=== PATIENT | male | born 1960 | race Caucasian/White ===

== ENCOUNTER → 2016-11-15 | Outpatient (CLI) | payer MEDICAID ==
[~2016-11-15] MED LIST: AMITRIPTYLINE H75 MG PO; AMRIX15 MG PO; ASPIRIN 81MG TA81 MG PO; CELEXA40 MG PO; CITALOPRAM HYDR40 MG PO; DARVOCET-N 1001 EACH PO; DIABETA2.5 MG PO; FLECTOR1.3% TP; FLEXERIL10 M1 PO; FLEXERIL10 MG PO; GABAPENTIN 600600 MG PO; GLYBURIDE2.5 M1 PO; HUMALOG KW100 UNIT/1 SQ; IBU800 MG PO; LIPITOR80 MG PO; LISINOPRIL10 MG PO; LORTAB 5/500 501 TAB PO; LORTAB 500 MG-11 TAB PO; LORTAB 500 MG-71 TAB PO; MEDROL 4MG. DOSE4 MG PO; MELOXICAM7.5 MG PO; METFORMIN 500M500 M1 PO; METFORMIN500 MG PO; MOBIC15 MG PO; NEURONTIN600 MG PO; NOMEDS *; NORTRIPTYLINE75 MG PO; OMEPRAZOLE20 MG PO; OMNICEF 300 MG300 MG PO; PHENERGAN 25MG.25 M1 PO; PREDNISONE 20MG20 MG PO; PRILOSEC OTC20 MG PO; ROPINIROLE HYDRO1 MG PO; SEPTRA DS 800 M1 TAB PO; SERTRALINE 50MG50 MG PO; ULTRAM 50 MG TA50 MG PO; VENTOLIN H0.09 MG/AC IH; VICODIN 7.5/501 EACH PO; XYLOCAINE2% TP
[2016-11-15 13:36] LABS: LYMPH # 2.6 K/mm3 (0.7-4.5); LYMPH % 27.4 % (10-50)
[2016-11-15 14:50] LABS: BUN 14 mg/dL (7-18); PROSTATE-SPECIFIC AG SCREEEN 0.9 ng/mL (0.0-4.0)
[2016-11-15 14:55] LABS: GFR (ESTIMATED) 87 ML/MIN (>60)
== END ==
LOC: LAB 12:20
PROVIDERS: Nurse Practitioner Family
DX: E11.9 Type 2 diabetes mellitus without complications (principal); I10 Essential (primary) hypertension; F32.9 Major depressive disorder, single episode, unspecified; Z12.5 Encounter for screening for malignant neoplasm of prostate
CPT/HCPCS: G0103

== ENCOUNTER 2017-02-07 15:48 | Emergency (ER) | payer MEDICAID ==
[~2017-02-07] VITALS: Ht 180.3 cm; Wt 59.0 kg
--- NOTE | 2017-02-07 16:19 | Emergency Room Report ---
History of Present Illness Time Seen by [id number] Presenting Problem in Triage Pt arrived:Walked Presenting Problem:PT C/O SEEING BUGS CRAWLING ALL OVER HIS HEART AND HE ADVISES THAT THEY ARE INSIDE HIS SKIN AND CRAWL AROUND. HE HAS NOTICED THEM FOR 2 DAYS NOW. PT DENIES ANY PSYCH HX AND DENIES ANY RECENT DRUG USE. 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 N Clinical Suspician of Infection? N Mental Status: 1 - Regular (Normal Baseline) Sepsis Risk:Low Sepsis Risk Have you (or family members/close friends) recently traveled outside the [place]? N If Yes, where/when: Have you had exposure to infectious disease within the past month? N TB? Other? Specify: Patient's friend states patient "seeing bugs" for the past two days. Recent unintentional weight loss. No headache or chest pain; no fever. No urinary sx. No SOB or fevers. Not SI or HI. No other delusions reported. Patient presents lint from sock and states it's a bug. ALLERGIES Coded Allergies: Sulfa (Sulfonamide Antibiotics) (I-HIVES 01/26/16) codeine (I-HIVES 01/26/16) Home Medications Active Scripts Omeprazole (Omeprazole 20MG) 20 MG PO DAILY #30 CAP Prov: 10/11/12 Reported Medications AMITRIPTYLINE HCL (Amitriptyline HCl) 75 MG PO QHS #30 Ibuprofen (Ibu) 800 MG PO PRN PRN PAIN #90 ROPINIROLE HCL (Ropinirole 1MG) 1 MG PO QHS Metformin HCL (Metformin) 500 MG PO DAILY Insulin Lispro (Humalog Kwikpen) 8 UNIT SQ BID #3 ASPIRIN (Aspirin) 81 MG PO DAILY Gabapentin (Gabapentin 600MG) 600 MG PO QID #90 Sertraline Hcl (Sertraline 50MG) 25 MG PO DAILY ALBUTEROL (Ventolin Hfa) 1 PUFF IH Q4HP PRN BREATHING (Skip THOMPSON, Jenny Salamanca) History Medical History General CAD? No Angina: No [place]: No Hypertension? Yes Hyperlipidemia? Yes CHF? No DVT? No PE? No COPD? Yes Asthma? No Anemia? No GERD? Yes Gastric ulcers? No GI Bleed? No Hernia? No Thyroid Problems? No Hypothyroidism? No CVA? No Seizures? No Diabetes? Yes Insulin Dependent: Yes Insulin Pump: No Home FSBS? Yes Renal Insuffiency? No End Stage Renal Disease? No UTI? No Stones? No BPH? Yes GB Disease: No Nephritic Syndrome? No Asplenia? No Hepatitis? No Sickle Cell Disease? No Arthritis? Yes Migraines? No Cataracts? No Glaucoma? No MRSA? No HIV? No TB? No Anxiety? Yes Depression? No Cancer? No More? Yes Additional hx: PAD, OSTEOARTHRITIS Immunization Hx DT/Tetanus 1-4 YRS Surgical Hx Previous Surgery?Y RHIZOTOMY X3 NERVES FOR PAIN CONTROL CERVICAL VERTEBRAE REPLAC EMENT, 3 VERTEBRAE Social History Smoking Hx Smoker: Current Every Day Smoker Tobacco: Yes Type Cigarettes Packs/day < 1 Pack Alcohol Alcohol: No (Skip THOMPSON, Jenny Salamanca) Review of Systems All Other Systems Reviewed and Negative Psychiatric/Neurological see HPI Comment hx DM (Skip THOMPSON, Jenny Salamanca) Physical Exam Vital Signs Vital Signs Date Time Temp Pulse Resp B/P Pulse O2 O2 Flow FiO2 Ox Delivery Rate 02/07 2009 92 16 124/74 99 02/07 1916 91 16 120/63 99 02/07 1836 95 16 118/75 98 02/07 1707 92 16 113/72 100 02/07 1559 98.6 84 16 127/90 98 General Appearance normal appearance, WD/WN, no apparent distress (picking at skin) Eye Exam - bilateral eye normal exam, bilateral eye PERRL, bilateral eye EOMI (no diplopia) Ear, Nose, Throat hearing grossly normal (nl thyroid) Neck normal inspection, non-tender, supple, full range of motion Respiratory Status Yes: trachea midline, chest symmetrical, non tender chest. No: respiratory distress, tender on palpation, use of accessory muscles, pain on inspiration, pain on expiration. Lung Sounds bilateral: normal breath sounds, lungs clear. 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 Glascow Coma Scale Glascow Coma Scale Response Value EYE response: 4 Spontaneously 4 MOTOR response: 6 OBEYS 6 VERBAL response: 5 Oriented & Converses 5 Total 15 Reflexes Reflexes normal Yes Mental status normal mood/affect (formication) Skin Patient pulling at skin and making slight tears in it across forearms; some scabbing; no secondary infection noted. Lymphatic no adenopathy (Skip THOMPSON, Jenny Salamanca) Medical Decision Making LABS/Meds/Orders Pt receiving controlled substance in ED? No Results/Orders Laboratory Tests 02/07/17 1745: Urine Color YELLOW, Urine Appearance CLEAR, Urine pH 5.5, Ur Specific [place] 1.015, Urine Protein NEGATIVE, Urine Ketones NEGATIVE, Urine Blood NEGATIVE, Urine Nitrate NEGATIVE, Urine Bilirubin NEGATIVE, Urine Urobilinogen 1.0, Ur Leukocyte Esterase NEGATIVE, Urine WBC OCC, Urine Bacteria TRACE, Urine Glucose 3+ H 02/07/17 1743: Opiates Screen NEGATIVE, Urine Methadone Screen NEGATIVE, Barbiturates NEGATIVE, Phencyclidine Screen NEGATIVE, Amphetamines Screen POSITIVE H, Benzodiazepines Screen NEGATIVE, Cocaine Screen NEGATIVE, Marijuana (THC) Screen POSITIVE H 02/07/17 1649: Lactic Acid 0.9 02/07/17 1649: Sodium 136, Potassium 3.7, Chloride 99, Carbon Dioxide 25, BUN 13, Creatinine 0.7 L, Estimated Creat Clear 98, Estimated GFR (MDRD) 117, Glucose 368 H, Calcium 9.3, Total Bilirubin 0.8, AST 159 H, ALT 230 H, Alkaline Phosphatase 190 H, Total Protein 8.4 H, Albumin 2.8 L, Globulin 5.6 H, Albumin/Globulin Ratio 0.5 L, TSH 1.30, WBC 12.5 H, RBC 4.29 L, Hgb 14.0 L, Hct 42.3, MCV 98.7 H, RDW 13.0, Plt Count 381, MPV 6.2 L, Gran % 69.7, Gran # 8.7 H, Lymphocytes % 23.5, Monocytes % 4.4, Eosinophils % 1.8, Basophils % 0.5, Lymphocytes # 2.9, Monocytes # 0.6, Eosinophils # 0.2, Basophils # 0.1, PUBS MCHC 33.1, MCH 32.7 H, Alcohols 0 Current Medication Orders Sig/Jillian Start time Last Medication Dose Route Stop Time Status Admin Sodium Chloride 1,000 ML .Q1H1M 02/07 1915 CAN IV 02/07 2015 Sodium Chloride 10 ML PRN PRN 02/07 1915 DC IV 02/08 190 Sodium Chloride 1,000 ML .Q1H1M 02/07 191 DC 02/07 IV 02/07 2015 190 Sodium Chloride 10 ML PRN PRN 02/07 191 AC IV 02/08 190 Sodium Chloride 1,000 ML .STK-MED ONE 02/07 1902 DC IV Sodium Chloride 10 ML PRN PRN 02/07 1630 AC IV 02/08 1617 Orders Procedure Date/time Status DIET-NOTHING BY MOUTH 02/07 D Active DRUG ABUSE SCREEN (TRIAGE) 02/07 1816 Complete [facility] 02/07 1700 Active ELECTROCARDIOGRAM REQUEST 02/07 1656 Active CULTURE, BLOOD 02/07 1655 Active LACTIC ACID 02/[address] HEAD REQ 02/07 1618 Complete IV SALINE LOCK 02/07 1618 Active URINALYSIS/COMPLETE 02/07 1618 Complete THYROID STIMULATING HORMONE 02/07 161 Complete CBC WITH AUTO DIFF 02/07 161 Complete CHEM 12 PROFILE 02/07 1618 Complete ALCOHOL 02/07 1618 Complete CM/EKG CM/EKG EKG rate, NSR, rhythm, no evid. of ischemic chgs, no ectopy, normal QRS, normal NM, normal EKG (NSR rate of 93;) XRAY/CT/US XRAY/CT/US CT head CT interpretation by reviewed by me (report reviewed) Consult MD Physician Consult 1 Time Called 1827 Reason Pt. Condition, consult with case management to initiate 72 hour hold; anticipate transfer to [facility]. Physician Consult 2 Consult/PCP Dr. Medina at [facility]: send for evaluation; need 72 hour petition. Reason calling [facility] regarding psychiatric evaluation/transfer Progress ED Progress Notes 1 Date 02/07/17 Time 1918 Comment Still awaiting call back from [facility] ED Progress Notes 2 Date 02/07/17 Time 194 Comment Making arrangements for 72 hour hold; care management paged again. ED Progress Notes 3 Date 02/07/17 Time 2004 Comment 72 hour hold papers have been signed by me in the presence of public address announcer. (Jenny Valdivia MD) Departure Departure Time of Disposition 2015 Disposition DC/XFER from ER to [facility] Clinical Impression Primary Impression: Acute psychosis Condition STABLE Referrals Kelly Simpson (Family) ED Critical Care Critical Care Yes Time spent < 30 min Vital system(s) involved: Circulatory Failure (acute psychosis) I was present at bedside for Coordinating pt's care, During my initial exam, Reviewing lab results, Discussing pt condition, For re-examinations (Jenny Valdivia MD) Departure Time of Disposition 2045 (Raina Gale MD) at 2015 at 2045
--- NOTE | 2017-02-07 16:19 | Emergency Room Report ---
History of Present Illness Time Seen by [id number] Presenting Problem in Triage Pt arrived:Walked Presenting Problem:PT C/O SEEING BUGS CRAWLING ALL OVER HIS HEART AND HE ADVISES THAT THEY ARE INSIDE HIS SKIN AND CRAWL AROUND. HE HAS NOTICED THEM FOR 2 DAYS NOW. PT DENIES ANY PSYCH HX AND DENIES ANY RECENT DRUG USE. 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 N Clinical Suspician of Infection? N Mental Status: 1 - Regular (Normal Baseline) Sepsis Risk:Low Sepsis Risk Have you (or family members/close friends) recently traveled outside the [place]? N If Yes, where/when: Have you had exposure to infectious disease within the past month? N TB? Other? Specify: Patient's friend states patient "seeing bugs" for the past two days. Recent unintentional weight loss. No headache or chest pain; no fever. No urinary sx. No SOB or fevers. Not SI or HI. No other delusions reported. Patient presents lint from sock and states it's a bug. ALLERGIES Coded Allergies: Sulfa (Sulfonamide Antibiotics) (I-HIVES 01/26/16) codeine (I-HIVES 01/26/16) Home Medications Active Scripts Omeprazole (Omeprazole 20MG) 20 MG PO DAILY #30 CAP Prov: 10/11/12 Reported Medications AMITRIPTYLINE HCL (Amitriptyline HCl) 75 MG PO QHS #30 Ibuprofen (Ibu) 800 MG PO PRN PRN PAIN #90 ROPINIROLE HCL (Ropinirole 1MG) 1 MG PO QHS Metformin HCL (Metformin) 500 MG PO DAILY Insulin Lispro (Humalog Kwikpen) 8 UNIT SQ BID #3 ASPIRIN (Aspirin) 81 MG PO DAILY Gabapentin (Gabapentin 600MG) 600 MG PO QID #90 Sertraline Hcl (Sertraline 50MG) 25 MG PO DAILY ALBUTEROL (Ventolin Hfa) 1 PUFF IH Q4HP PRN BREATHING (Skip THOMPSON, Jenny Salamanca) History Medical History General CAD? No Angina: No [place]: No Hypertension? Yes Hyperlipidemia? Yes CHF? No DVT? No PE? No COPD? Yes Asthma? No Anemia? No GERD? Yes Gastric ulcers? No GI Bleed? No Hernia? No Thyroid Problems? No Hypothyroidism? No CVA? No Seizures? No Diabetes? Yes Insulin Dependent: Yes Insulin Pump: No Home FSBS? Yes Renal Insuffiency? No End Stage Renal Disease? No UTI? No Stones? No BPH? Yes GB Disease: No Nephritic Syndrome? No Asplenia? No Hepatitis? No Sickle Cell Disease? No Arthritis? Yes Migraines? No Cataracts? No Glaucoma? No MRSA? No HIV? No TB? No Anxiety? Yes Depression? No Cancer? No More? Yes Additional hx: PAD, OSTEOARTHRITIS Immunization Hx DT/Tetanus 1-4 YRS Surgical Hx Previous Surgery?Y RHIZOTOMY X3 NERVES FOR PAIN CONTROL CERVICAL VERTEBRAE REPLAC EMENT, 3 VERTEBRAE Social History Smoking Hx Smoker: Current Every Day Smoker Tobacco: Yes Type Cigarettes Packs/day < 1 Pack Alcohol Alcohol: No (Skip THOMPSON, Jenny Salamanca) Review of Systems All Other Systems Reviewed and Negative Psychiatric/Neurological see HPI Comment hx DM (Skip THOMPSON, Jenny Salamanca) Physical Exam Vital Signs Vital Signs Date Time Temp Pulse Resp B/P Pulse O2 O2 Flow FiO2 Ox Delivery Rate 02/07 2009 92 16 124/74 99 02/07 1916 91 16 120/63 99 02/07 1836 95 16 118/75 98 02/07 1707 92 16 113/72 100 02/07 1559 98.6 84 16 127/90 98 General Appearance normal appearance, WD/WN, no apparent distress (picking at skin) Eye Exam - bilateral eye normal exam, bilateral eye PERRL, bilateral eye EOMI (no diplopia) Ear, Nose, Throat hearing grossly normal (nl thyroid) Neck normal inspection, non-tender, supple, full range of motion Respiratory Status Yes: trachea midline, chest symmetrical, non tender chest. No: respiratory distress, tender on palpation, use of accessory muscles, pain on inspiration, pain on expiration. Lung Sounds bilateral: normal breath sounds, lungs clear. 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 Glascow Coma Scale Glascow Coma Scale Response Value EYE response: 4 Spontaneously 4 MOTOR response: 6 OBEYS 6 VERBAL response: 5 Oriented & Converses 5 Total 15 Reflexes Reflexes normal Yes Mental status normal mood/affect (formication) Skin Patient pulling at skin and making slight tears in it across forearms; some scabbing; no secondary infection noted. Lymphatic no adenopathy (Skip THOMPSON, Jenny Salamanca) Medical Decision Making LABS/Meds/Orders Pt receiving controlled substance in ED? No Results/Orders Laboratory Tests 02/07/17 1745: Urine Color YELLOW, Urine Appearance CLEAR, Urine pH 5.5, Ur Specific [place] 1.015, Urine Protein NEGATIVE, Urine Ketones NEGATIVE, Urine Blood NEGATIVE, Urine Nitrate NEGATIVE, Urine Bilirubin NEGATIVE, Urine Urobilinogen 1.0, Ur Leukocyte Esterase NEGATIVE, Urine WBC OCC, Urine Bacteria TRACE, Urine Glucose 3+ H 02/07/17 1743: Opiates Screen NEGATIVE, Urine Methadone Screen NEGATIVE, Barbiturates NEGATIVE, Phencyclidine Screen NEGATIVE, Amphetamines Screen POSITIVE H, Benzodiazepines Screen NEGATIVE, Cocaine Screen NEGATIVE, Marijuana (THC) Screen POSITIVE H 02/07/17 1649: Lactic Acid 0.9 02/07/17 1649: Sodium 136, Potassium 3.7, Chloride 99, Carbon Dioxide 25, BUN 13, Creatinine 0.7 L, Estimated Creat Clear 98, Estimated GFR (MDRD) 117, Glucose 368 H, Calcium 9.3, Total Bilirubin 0.8, AST 159 H, ALT 230 H, Alkaline Phosphatase 190 H, Total Protein 8.4 H, Albumin 2.8 L, Globulin 5.6 H, Albumin/Globulin Ratio 0.5 L, TSH 1.30, WBC 12.5 H, RBC 4.29 L, Hgb 14.0 L, Hct 42.3, MCV 98.7 H, RDW 13.0, Plt Count 381, MPV 6.2 L, Gran % 69.7, Gran # 8.7 H, Lymphocytes % 23.5, Monocytes % 4.4, Eosinophils % 1.8, Basophils % 0.5, Lymphocytes # 2.9, Monocytes # 0.6, Eosinophils # 0.2, Basophils # 0.1, PUBS MCHC 33.1, MCH 32.7 H, Alcohols 0 Current Medication Orders Sig/Jillian Start time Last Medication Dose Route Stop Time Status Admin Sodium Chloride 1,000 ML .Q1H1M 02/07 1915 CAN IV 02/07 2015 Sodium Chloride 10 ML PRN PRN 02/07 1915 DC IV 02/08 190 Sodium Chloride 1,000 ML .Q1H1M 02/07 191 DC 02/07 IV 02/07 2015 190 Sodium Chloride 10 ML PRN PRN 02/07 191 AC IV 02/08 190 Sodium Chloride 1,000 ML .STK-MED ONE 02/07 1902 DC IV Sodium Chloride 10 ML PRN PRN 02/07 1630 AC IV 02/08 1617 Orders Procedure Date/time Status DIET-NOTHING BY MOUTH 02/07 D Active DRUG ABUSE SCREEN (TRIAGE) 02/07 1816 Complete [facility] 02/07 1700 Active ELECTROCARDIOGRAM REQUEST 02/07 1656 Active CULTURE, BLOOD 02/07 1655 Active LACTIC ACID 02/[address] HEAD REQ 02/07 1618 Complete IV SALINE LOCK 02/07 1618 Active URINALYSIS/COMPLETE 02/07 1618 Complete THYROID STIMULATING HORMONE 02/07 161 Complete CBC WITH AUTO DIFF 02/07 161 Complete CHEM 12 PROFILE 02/07 1618 Complete ALCOHOL 02/07 1618 Complete CM/EKG CM/EKG EKG rate, NSR, rhythm, no evid. of ischemic chgs, no ectopy, normal QRS, normal [place], normal EKG (NSR rate of 93;) XRAY/CT/US XRAY/CT/US CT head CT interpretation by reviewed by me (report reviewed) Consult MD Physician Consult 1 Time Called 1827 Reason Pt. Condition, consult with case management to initiate 72 hour hold; anticipate transfer to [facility]. Physician Consult 2 Consult/PCP Dr. Medina at [facility]: send for evaluation; need 72 hour petition. Reason calling [facility] regarding psychiatric evaluation/transfer Progress ED Progress Notes 1 Date 02/07/17 Time 1918 Comment Still awaiting call back from [facility] ED Progress Notes 2 Date 02/07/17 Time 194 Comment Making arrangements for 72 hour hold; care management paged again. ED Progress Notes 3 Date 02/07/17 Time 2004 Comment 72 hour hold papers have been signed by me in the presence of public affairs manager. (Jenny Valdivia MD) Departure Departure Time of Disposition 2015 Disposition DC/XFER from ER to [facility] Clinical Impression Primary Impression: Acute psychosis Condition STABLE Referrals Kelly Simpson (Family) ED Critical Care Critical Care Yes Time spent < 30 min Vital system(s) involved: Circulatory Failure (acute psychosis) I was present at bedside for Coordinating pt's care, During my initial exam, Reviewing lab results, Discussing pt condition, For re-examinations (Jenny Valdivia MD) Departure Time of Disposition 2045 (Raina Gale MD) at 2015 at 2045
--- NOTE | 2017-02-07 16:53 | RADIOLOGY REPORT PS360 ---
CT HEAD W/O CONTRAST HISTORY: Altered level of consciousness, altered mental status, confusion DELUSIONAL ORDERING PHYSICIAN: Jenny Valdivia MD PATIENT AGE: 56 years COMPARISON: 01/02/2017 TECHNIQUE: Axial images obtained without contrast. Brain and bone windows reviewed. FINDINGS: No midline shift, mass effect, intracranial hemorrhage, hydrocephalus, or extra-axial fluid collection is evident. There is some mild hypoattenuation in the periventricular white matter nonspecific consistent with mild ischemic gliotic change from small vessel disease. The calvarium has an unremarkable appearance. No mastoid effusion. Mild mucosal thickening of the right ethmoid sinus. IMPRESSION: 1. No acute intracranial pathology with no significant change.
[2017-02-07 17:03] LABS: LYMPH # 2.9 K/mm3 (0.7-4.5); LYMPH % 23.5 % (10-50)
[2017-02-07 18:06] LABS: URINE BILIRUBIN - DIPSTICK NEGATIVE (NEG); URINE BLOOD NEGATIVE (NEG)
[2017-02-07 18:28] LABS: AMPHETAMINES/METAMPHETAMINES POSITIVE ng/mL (<1000)
[2017-02-07 21:00] VITALS: BP 124/74
== END 2017-02-07 21:01 | disposition short-term general hospital (02) ==
LOC: ER 15:48
PROVIDERS: Emergency Medicine
DX: F23 Brief psychotic disorder (principal); I10 Essential (primary) hypertension; Z72.0 Tobacco use; K21.9 Gastro-esophageal reflux disease without esophagitis; E11.65 Type 2 diabetes mellitus with hyperglycemia; Z79.4 Long term (current) use of insulin
CPT/HCPCS: G6040

== ENCOUNTER → 2017-02-11 | Outpatient (CLI) | payer MEDICAID ==
[2017-02-11 19:10] LABS: LYMPH % 27.2 % (10-50)
[2017-02-11 19:19] LABS: BUN 13 mg/dL (7-18)
[2017-02-11 19:20] LABS: HEMOGLOBIN 16.3 g/dL (14.1-18.0)
[2017-02-11 19:46] LABS: AMPHETAMINES/METAMPHETAMINES NEGATIVE ng/mL (<1000); GFR (ESTIMATED) 117 ML/MIN (>60)
[2017-02-13 10:39] LABS: Creatinine, Urine 30.5 mg/dL (Not Estab.); Microalbumin, Urine <3.0 ug/mL (Not Estab.)
== END ==
LOC: LAB 18:09
PROVIDERS: Nurse Practitioner Family
DX: I10 Essential (primary) hypertension (principal); E11.9 Type 2 diabetes mellitus without complications; R63.4 Abnormal weight loss